=== PATIENT | male | born 1945 | race Caucasian/White ===

== ENCOUNTER → 2019-01-14 | Outpatient (CLI) | payer MEDICARE, SELFPAY ==
[2019-01-14 13:03] VITALS: BMI 30.1
[2019-01-14 14:21] LABS: Absolute Lymphocyte Count 0.81 X10^3/ul (0.83-4.51); Absolute Neutrophil Count 4.2 X10^3/uL (2.0-7.7); Basophil# 0.04 X10^3/uL; Basophil% 0.7 % (0-1); Eosinophil# 0.07 X10^3/uL; Eosinophils% 1.2 % (0-5); Hematocrit 51.8 % (40-54); Hemoglobin 17.8 g/dl (13.0-16.5); Lymphocyte # 0.81 X10^3/ul (4.0); Lymphocyte % 13.8 % (19-41); Mean Corp Hgb Conc 34.4 g/gl (32-36); Mean Corpuscular Hgb 32.3 pg (27.0-32.0); Mean Platelet Vol. 9.4 fl (6.2-12.0); Monocyte# 0.75 X10^3/uL; Monocyte% 12.8 % (0-10); Neutrophil # 4.17 X10^3/uL (2.7-7.7); Neutrophil % 71.2 % (47-70); Platelet Count 212 K/mm3 (150-450); RBC Distribution Width CV 13.5 % (11.6-14.6); RBC Distribution Width SD 46.4 fl (35.1-43.9); Red Blood Count 5.51 M/mm3 (4.6-6.2); White Blood Count 5.9 K/mm3 (4.4-11.0)
[2019-01-14 14:24] LABS: POSITIVE COUNT NO; POSITIVE DIFFERENTIAL NO; POSITIVE MORPHOLOGY NO
[2019-01-20 17:54] LABS: Alternaria alternata <0.10 kU/L (Class 0); Bermuda Grass <0.10 kU/L (Class 0); Bluegrass, Kentucky <0.10 kU/L (Class 0); Cat Hair/Dander, Standard <0.10 kU/L (Class 0); D farinae Mite <0.10 kU/L (Class 0); D pteronyssinus <0.10 kU/L (Class 0); Dog Epithelia <0.10 kU/L (Class 0); Elm, American White <0.10 kU/L (Class 0); Oak, White <0.10 kU/L (Class 0); Plantain, English <0.10 kU/L (Class 0); Ragweed, Short/Common <0.10 kU/L (Class 0)
[2019-01-21 03:06] LABS: Aspirgillus flavus Negative (Neg:<1:1); Aspirgillus fumigatus Negative (Neg:<1:1); Aspirgillus niger Negative (Neg:<1:1)
[2019-01-21 17:01] LABS: Immunoglobulin E 108 IU/mL (6-495)
[2019-01-21 17:05] LABS: Mouse Urine <0.10 kU/L (Class 0)
== END | disposition home or self-care (01) ==
PROVIDERS: Family Provider Family Medicine; PCP Family Medicine; Visit Provider Nurse Practitioner Acute Care
DX: J30.9 Allergic rhinitis, unspecified (principal); R05 Cough
CPT/HCPCS: 36415; 82785; 85025; 86003; 86606

== ENCOUNTER → 2019-08-09 | Outpatient (CLI) | payer MEDICARE, SELFPAY ==
[2019-08-04 13:03] VITALS: BMI 29.7
--- NOTE | 2019-08-09 09:58 | EKG12_ITS ---
Test Reason : Blood Pressure : / mmHG Vent. Rate : 105 BPM Atrial Rate : 326 BPM P-R Int : 000 ms QRS Dur : 100 ms QT Int : 336 ms P-R-T Axes : 000 -39 035 degrees QTc Int : 444 ms Atrial fibrillation with rapid ventricular response Left axis deviation Minimal voltage criteria for LVH, may be normal variant Abnormal ECG Confirmed by DUSTIN CUETO, PHYLICIA ([id number]), manuscript editor LEONARD BRANDT ([id number]) on 08/10/2019 8:43:19 AM Referred By: Lexa Lmoeli Confirmed By:PHYLICIA CHAN MD
[2019-08-09 12:18] LABS: Absolute Lymphocyte Count 0.78 X10^3/uL (0.83-4.51); Absolute Neutrophil Count 7.1 X10^3/uL (2.0-7.7); Basophil# 0.05 X10^3/uL; Basophil% 0.6 % (0-1); Eosinophil# 0.03 X10^3/uL; Eosinophils% 0.3 % (0-5); Hematocrit 53.5 % (40-54); Hemoglobin 17.8 g/dL (13.0-16.5); Lymphocyte # 0.78 X10^3/ul (4.0); Lymphocyte % 8.6 % (19-41); Mean Corp Hgb Conc 33.3 g/dL (32-36); Mean Corpuscular Hgb 32.4 pg (27.0-32.0); Mean Corpuscular Volume 97.3 fL (80-94); Mean Platelet Vol. 10.8 fl (6.2-12.0); Monocyte# 0.98 X10^3/uL; Monocyte% 10.9 % (0-10); NRBC Flagged by Analyzer 0 % (0-5); Neutrophil # 7.09 X10^3/uL (2.7-7.7); Neutrophil % 78.6 % (47-70); Platelet Count 197 K/mm3 (150-450); RBC Distribution Width CV 12.8 % (11.6-14.6)
[2019-08-09 12:39] LABS: ALB/GLOB Ratio 0.9 RATIO (0.9-2.4); AST(SGOT) 26 U/L (15-37); Alanine Aminotransfer ALT/SGPT 29 U/L (16-61); Albumin, Serum 3.5 g/dL (3.2-5.0); Alkaline Phosphatase 78 U/L (45-117); Anion Gap 12 (5-15); BUN 15 mg/dL (7-18); BUN/Creat Ratio 13.2 RATIO (10-20); Chloride 94 mmol/L (98-107); Creatinine, Serum 1.14 mg/dL (0.70-1.30); EST Glomerular Filtration Rate 67 mL/min (>60); Est Glom Filt Rate - Afr Amer 81 mL/min (>60); Globulin 4.1 g/dL (2.2-4.2); Glucose 116 mg/dL (74-106); Potassium 5.4 mmol/L (3.5-5.1); Protein, Total 7.6 g/dL (6.4-8.2); Sodium Level 130 mmol/L (136-145); T4 Free Direct 1.49 ng/dL (0.76-1.46)
== END | disposition home or self-care (01) ==
LOC: BIMLAB 09:08 → CVS 09:36
PROVIDERS: Family Provider Internal Medicine; PCP Internal Medicine; Referring Provider Internal Medicine; Visit Provider Internal Medicine
DX: I10 Essential (primary) hypertension (principal); E03.9 Hypothyroidism, unspecified
CPT/HCPCS: 36415; 80053; 84439; 84443; 85025; 93005

== ENCOUNTER → 2019-08-12 | Outpatient (CLI) | payer MEDICARE, SELFPAY ==
[2019-08-10 14:46] VITALS: BMI 30.7
== END | disposition home or self-care (01) ==
LOC: BIMLAB 08:38
PROVIDERS: Family Provider Internal Medicine; PCP Internal Medicine; Visit Provider Internal Medicine Cardiovascular Disease
DX: R06.00 Dyspnea, unspecified (principal); E03.9 Hypothyroidism, unspecified; I10 Essential (primary) hypertension; I48.0 Paroxysmal atrial fibrillation; J45.909 Unspecified asthma, uncomplicated; R53.83 Other fatigue
CPT/HCPCS: 36415; 83880

== ENCOUNTER → 2019-08-19 | Outpatient (CLI) | payer MEDICARE, SELFPAY ==
[2019-08-10 14:46] VITALS: BMI 30.7
[2019-08-19 12:16] LABS: Anion Gap 5 (5-15); BUN 14 mg/dL (7-18); BUN/Creat Ratio 13.3 RATIO (10-20); Calcium,Total 9.2 mg/dL (8.5-10.1); Chloride 92 mmol/L (98-107); Creatinine, Serum 1.05 mg/dL (0.70-1.30); EST Glomerular Filtration Rate 73 mL/min (>60); Est Glom Filt Rate - Afr Amer 89 mL/min (>60); Glucose 133 mg/dL (74-106); Potassium 4.6 mmol/L (3.5-5.1); Sodium Level 131 mmol/L (136-145)
== END | disposition home or self-care (01) ==
LOC: BIMLAB 10:08
PROVIDERS: Family Provider Internal Medicine; PCP Internal Medicine; Visit Provider Internal Medicine
DX: I10 Essential (primary) hypertension (principal); E87.5 Hyperkalemia
CPT/HCPCS: 36415; 80048

== ENCOUNTER → 2019-08-30 06:16 | Outpatient (CLI) | payer MEDICARE, SELFPAY ==
[2019-08-10 14:46] VITALS: BMI 30.7
--- NOTE | 2019-08-30 06:18 | ECHOCS_ITS ---
Reason For Study: AFIB Procedure This was a 2D Doppler, Color Flow transthoracic echocardiogram. The study was technically difficult. Contrast injection was performed. Exam performed in department. Left Ventricle Mildly dilated left ventricle. The estimated ejection fraction is 25 %. Unable to assess diastolic dysfunction due to arrhythmia. No regional wall motion abnormalities noted. Right Ventricle Normal RV size. Normal systolic function. Atria The left atrium is mildly enlarged. Normal right atrium. Mitral Valve Normal mitral valve. Tricuspid Valve Normal tricuspid valve. Mild to moderate (1-2+) tricuspid valve insufficiency. Pulmonary artery systolic pressure is 50 mmHg. Moderate pulmonary hypertension. Aortic Valve Normal aortic valve. Pulmonic Valve Normal pulmonic valve. Great Vessels Normal aortic root. The pulmonary artery is normal size. Normal inferior vena cava. Pericardium/Pleural No pericardial effusion. Medication Diluted definity 3.0ml given slow IV push to enhance endocardial definition. MMode/2D Measurements & Calculations LVIDd: 5.8 cm IVSd: 0.97 cm Ao root diam: 3.8 cm LVIDs: 5.0 cm LVPWd: 1.0 cm RVDd: 3.9 cm FS: 13.5 % LAV(MOD-bp): 68.8 ml LVAd ap4: 41.3 cm2 SV(MOD-sp4): 33.0 ml LAV(MOD-bp) Indexed: 31.3 ml/m2 EDV(MOD-sp4): 161.5 ml LAV(MOD-sp2): 57.0 ml EDV(sp4-el): 164.2 ml LAV(MOD-sp4): 75.2 ml LVAs ap4: 34.7 cm2 ESV(MOD-sp4): 128.5 ml ESV(sp4-el): 131.2 ml EF(MOD-sp4): 20.4 % EF(sp4-el): 20.1 % SV(sp4-el): 33.1 ml LA A4 area: 24.2 cm2 LA dimension(2D): 4.8 cm RA A4 area: 18.6 cm2 Doppler Measurements & Calculations Ao V2 max: 96.7 cm/sec AI max sabiha: 400.9 cm/sec LV V1 max: 53.6 cm/sec Ao max P.8 mmHg AI max P.4 mmHg LV V1 max P.2 mmHg Ao V2 mean: 72.0 cm/sec AI dec slope: 186.4 cm/sec2 LV V1 mean P.67 mmHg Ao mean P.3 mmHg AI P1/2t: 630.0 msec LV V1 mean: 38.8 cm/sec Ao V2 VTI: 16.5 cm LV V1 VTI: 9.7 cm PA V2 max: 98.6 cm/sec TR max sabiha: 341.4 cm/sec TR max P.6 mmHg Interpretation Summary Mildly dilated left ventricle. The estimated ejection fraction is 25 %. Unable to assess diastolic dysfunction due to arrhythmia. Moderate pulmonary hypertension. Contrast injection was performed. Ordering Physician: Omid Escobar Referring Physician: Lexa Lomeli Performed By: Dulce Sam RDCS, RVT
--- NOTE | 2019-08-30 09:54 | STRESSREP ---
Stress Test Report Pharmacologic myocardial perfusion stress test. 73-year-old male with a history of atrial fibrillation. Stress protocol: Resting EKG demonstrates atrial for ablation with a rate of 88 bpm. Resting blood pressures 150/98 mmHg. 0.4 mg of regadenoson was infused per usual protocol followed by rapid intravenous saline flush injection continuous EKG monitoring was performed. The maximum heart rate attained was 116 bpm which was 79% of maximum predicted heart rate the maximum workload was 1 metabolic equivalent. Patient maintained atrial fibrillation throughout the recording with nonspecific ST-T wave changes noted. The resting blood pressure was 150/98 mmHg final blood pressure was 130/94 mmHg. No clinical angina was noted. Myocardial perfusion protocol. 15.0 mCi of technetium 99m sestamibi was injected at rest. 0.4 mg of regadenoson was infused per usual protocol peak infusion 44.8 mCi of technetium 99m sestamibi was injected stress images were obtained stress and rest images were reconstructed and compared in the short axis vertical and horizontal long axis. Gated images were also obtained Perfusion SPECT analysis: Review of the stress images demonstrate normal uptake of tracer noted in all areas of the myocardium the resting images similarly demonstrate normal uptake of tracer noted in all areas of the myocardium. No obvious reversibility is noted. Gated SPECT analysis: The gated ejection fraction demonstrates globally reduced left ventricular ejection fraction estimated to be 29%. Conclusion: Myocardial perfusion stress test with no evidence of ischemia. Cardiomyopathy noted.
== END ==
PROVIDERS: Family Provider Internal Medicine; PCP Internal Medicine; Referring Provider Internal Medicine Cardiovascular Disease; Visit Provider Internal Medicine Cardiovascular Disease
DX: I48.0 Paroxysmal atrial fibrillation (principal); R06.00 Dyspnea, unspecified
CPT/HCPCS: 78452; 93017; 93306; A9500; Q9957; A4216; C8929; J2785

== ENCOUNTER → 2019-09-23 16:18 | Outpatient (CLI) | payer MEDICARE, SELFPAY ==
[2019-09-23 15:25] VITALS: BMI 30.2
[2019-09-23 17:50] LABS: Anion Gap 5 (5-15); BUN 11 mg/dL (7-18); BUN/Creat Ratio 11.1 RATIO (10-20); Calcium,Total 9.3 mg/dL (8.5-10.1); Chloride 99 mmol/L (98-107); Creatinine, Serum 0.99 mg/dL (0.70-1.30); EST Glomerular Filtration Rate 79 mL/min (>60); Est Glom Filt Rate - Afr Amer 95 mL/min (>60); Glucose 138 mg/dL (74-106); Potassium 4.3 mmol/L (3.5-5.1); Sodium Level 133 mmol/L (136-145)
== END ==
PROVIDERS: Family Provider Internal Medicine; PCP Internal Medicine; Referring Provider Internal Medicine Cardiovascular Disease; Visit Provider Internal Medicine Cardiovascular Disease
DX: I10 Essential (primary) hypertension (principal); I42.8 Other cardiomyopathies; I48.19 Other persistent atrial fibrillation
CPT/HCPCS: 36415; 80048

== ENCOUNTER 2019-10-08 10:36 | Day surgery (SDC) | payer MEDICARE, SELFPAY ==
[2019-09-23 15:25] VITALS: BMI 30.2
[2019-10-07 10:16] VITALS: BMI 30.2
--- NOTE | 2019-10-08 12:39 | CARDIOVERS ---
Cardioversion Cardioversion: DC cardioversion. 74-year-old man with a history of cardiomyopathy and chronic persistent atrial fibrillation. The patient was brought to the cardiac catheterization lab in the postabsorptive nonsedated state. Patient was seen by Dr. Owen of the critical care division. Informed consent was obtained. The patient was then administered 6 mg of intravenous etomidate after anterior-posterior pads were applied. 200 J of synchronized DC cardioversion energy were applied with prompt reversal to sinus rhythm. Patient did have an episode of sinus tachycardia as well. Conclusion: Successful DC cardioversion from atrial fibrillation to sinus rhythm. Amiodarone 200 mg a day for a month. We will follow-up in the office.
--- NOTE | 2019-10-08 13:15 | PCM.OP.PRO ---
Procedure Report Date of Procedure: 10/08/19 CONSCIOUS SEDATION REPORT DATE OF SERVICE: October 08, 2019 BRIEF HISTORY OF PRESENT ILLNESS: The patient is a 74-year-old male who presented to [facility] for an elective outpatient cardioversion due to underlying atrial fibrillation. The patient is currently anticoagulated on Eliquis. He has never undergone a previous cardioversion. His last surface echocardiogram revealed an ejection fraction of approximately 25%. The patient denies any previous anesthetic complications. PHYSICAL EXAMINATION: VITAL SIGNS: Reviewed and were acceptable. GENERAL: The patient is a male, in no apparent distress, speaking in full sentences. HEENT: Normocephalic, atraumatic. Mucous membranes are moist and pink. Good mouth opening noted. Trachea is midline. CHEST: S1, S2 irregularly irregular. No murmurs, rubs or gallops were noted. LUNGS: Clear to auscultation bilaterally without appreciable wheezes, rales or rhonchi. ABDOMEN: Soft, nontender, nondistended. Positive bowel sounds. EXTREMITIES: There is no clubbing, cyanosis or edema. ASA Class: II DESCRIPTION OF PROCEDURE: After confirmation of informed consent, the patient's anesthesia plan was reviewed in detail. Etomidate was chosen. Risks and benefits were reviewed and the patient agreed to proceed. At 1209, the patient was given 6 mg of etomidate. The patient achieved an appropriate level of sedation and was given a 200 joule synchronized cardioversion by Dr. Escobar at the bedside. This was successful in achieving normal sinus rhythm. The patient was monitored until 1220, at which time he reached his baseline mental status and function. The patient tolerated the procedure well. COMPLICATIONS: None ESTIMATED BLOOD LOSS: None RECOMMENDATIONS: Okay to recover in usual fashion. Code Visit [id number]: Other Procedure See Report - [id number]
== END 2019-10-08 13:20 | disposition home or self-care (01) ==
LOC: CLSP 10:37
PROVIDERS: Family Provider Internal Medicine; PCP Internal Medicine; Referring Provider Internal Medicine Cardiovascular Disease; Visit Provider Internal Medicine Cardiovascular Disease
DX: I48.19 Other persistent atrial fibrillation (principal); I42.9 Cardiomyopathy, unspecified; I10 Essential (primary) hypertension; E03.9 Hypothyroidism, unspecified; J45.909 Unspecified asthma, uncomplicated; Z79.02 Long term (current) use of antithrombotics/antiplatelets; Z79.51 Long term (current) use of inhaled steroids; Z79.899 Other long term (current) drug therapy
CPT/HCPCS: 92960; 93005; J7040

== ENCOUNTER → 2019-12-29 14:50 | Outpatient (CLI) | payer MEDICARE, SELFPAY ==
[2019-12-29 14:29] VITALS: BMI 31.2
[2019-12-29 16:02] LABS: Anion Gap 9 (5-15); BUN 9 mg/dL (7-18); BUN/Creat Ratio 10.3 RATIO (10-20); Calcium,Total 9.1 mg/dL (8.5-10.1); Chloride 96 mmol/L (98-107); Creatinine, Serum 0.87 mg/dL (0.70-1.30); EST Glomerular Filtration Rate 91 mL/min (>60); Est Glom Filt Rate - Afr Amer 110 mL/min (>60); Glucose 133 mg/dL (74-106); Potassium 4.8 mmol/L (3.5-5.1); Sodium Level 134 mmol/L (136-145)
== END ==
PROVIDERS: PCP Internal Medicine; Visit Provider Internal Medicine
DX: I10 Essential (primary) hypertension (principal)
CPT/HCPCS: 36415; 80048

== ENCOUNTER 2020-06-09 06:28 | Day surgery (SDC) | payer MEDICARE, SELFPAY ==
[2020-04-25 14:25] VITALS: BMI 31.2
--- NOTE | 2020-06-05 14:20 | RAD_ITS ---
STUDY: X-RAY CHEST REASON FOR EXAM: Male, 74 years old. chronic cough, pre op for procedure in near future TECHNIQUE: Frontal and lateral views of the chest. COMPARISON: None. FINDINGS: Cervical spine fusions. The lungs are clear and expanded. There is no demonstrated pleural abnormality. Normal size heart. Normal mediastinum and taryn. Normal visualized pulmonary arteries. Normal visualized aortic arch and descending thoracic aorta. Normal visualized thoracic spine. Normal visualized ribs, clavicles, and shoulders. There is no demonstrated abnormality of the visualized soft tissue structures of the upper abdomen. RAD/Chest PA and Lateral IMPRESSION: No acute pulmonary findings. Electronically Signed: Frederick Fenton MD at 20:37 EDT Tel , Service support ,
[2020-06-05 14:50] LABS: Absolute Lymphocyte Count 0.84 X10^3/uL (0.83-4.51); Absolute Neutrophil Count 3.4 X10^3/uL (2.0-7.7); Basophil# 0.05 X10^3/uL; Eosinophil# 0.06 X10^3/uL; Eosinophils% 1.2 % (0-5); Hematocrit 49.4 % (40-54); Hemoglobin 16.4 g/dL (13.0-16.5); Lymphocyte # 0.84 X10^3/ul (4.0); Lymphocyte % 16.4 % (19-41); Mean Corp Hgb Conc 33.2 g/dL (32-36); Mean Corpuscular Hgb 32.6 pg (27.0-32.0); Mean Corpuscular Volume 98.2 fL (80-94); Mean Platelet Vol. 9.7 fl (6.2-12.0); Monocyte# 0.75 X10^3/uL; Monocyte% 14.7 % (0-10); NRBC Flagged by Analyzer 0 % (0-5); Neutrophil # 3.37 X10^3/uL (2.7-7.7); Neutrophil % 65.9 % (47-70); Platelet Count 212 K/mm3 (150-450); RBC Distribution Width CV 12.6 % (11.6-14.6); RBC Distribution Width SD 45.1 fl (35.1-43.9); Red Blood Count 5.03 M/mm3 (4.6-6.2); White Blood Count 5.1 K/mm3 (4.4-11.0)
[2020-06-05 15:42] LABS: Anion Gap 4 (5-15); BUN 12 mg/dL (7-18); BUN/Creat Ratio 13.9 RATIO (10-20); Calcium,Total 8.9 mg/dL (8.5-10.1); Chloride 102 mmol/L (98-107); Creatinine, Serum 0.86 mg/dL (0.70-1.30); EST Glomerular Filtration Rate 91 mL/min (>60); Est Glom Filt Rate - Afr Amer 111 mL/min (>60); Glucose 152 mg/dL (74-106); Potassium 4.1 mmol/L (3.5-5.1); Sodium Level 135 mmol/L (136-145)
[2020-06-08 08:20] VITALS: BMI 29.9
--- NOTE | 2020-06-09 08:00 | HP.PCM_ITS ---
History and Physical Date of Admission: 06/09/20 MARSHAL LONGORIA, is a 74 M who presents today for a [facility]. He has a history of hypertension, previous paroxysmal atrial fibrillation, who in 2017 was diagnosed as having paroxysmal atrial fibrillation. It may even have been diagnosed with back in 2008. He had an echocardiogram done which demonstrated ejection fraction of 55 to 60%. His major issue has been a cough recently which has been persistent he had it while he was on lisinopril and was switched to losartan and he said it does come back. He strongly suspects that this may be related to it. You do remember that he underwent a recent echocardiographic evaluation which demonstrated global reduction in left ventricular systolic function estimated at 25% with pulmonary systolic pressure of 50 mmHg. He underwent cardioversion on 10/08/2019 with recommendation to continue amiodarone therapy for 1 month as his reduced ejection fraction was thought to be nonischemic and possibly tachycardia mediated. He under went CRYO-Pulmonary vein isolation ablation with Dr. Bowen on 03/24/2020. Patient underwent stage I of a 2 part hybrid AF ablation strategy with cryo- pulmonary vein isolation ablation with Dr. Bowen at [facility] on 03/24/2020. It was recommended he be referred to cardiothoracic surgeon for part 2 (CONVERGENT maze +AtriClip). As part of his work-up, it was recommend he undergo a heart catheterization to assess coronary artery disease component. He presents today for a left heart catheterization. He denies chest, arm, jaw, or neck discomfort. His exercise tolerance is stable. He denies symptoms of palpitations, lightheadedness, dizziness, near syncope, or syncopal episodes. He denies edema or claudication issues. He denies orthopnea, PND, fever, chills, blood in urine, blood in stool, or myalgia. Intake Vital Signs: See EMR Intake Visit Reasons: [facility] Allergies lisinopril Adverse Reaction (Verified 09/01/19 13:31) COUGH sertraline [From Zoloft] Adverse Reaction (Verified 09/01/19 13:31) dizzy/weakness/nausea Medications See EMR FOR[facility] Medical History Non-ischemic cardiomyopathy (Chronic) Essential (primary) hypertension (Chronic) Paroxysmal atrial fibrillation (Chronic) Hypothyroidism (Chronic) Asthma (Chronic) BMI 30.0-30.9,adult (Chronic) Glaucoma (Chronic) Neuropathy (Chronic) Seasonal allergies (Chronic) Cough (Resolved) Recurrent sinusitis (Resolved) Surgical History Cataract (Resolved) H/O bilateral inguinal hernia repair (Resolved) History of bilateral knee replacement (Resolved) History of cholecystectomy (Resolved) History of discectomy (Resolved) Partial traumatic amputation of foot (Resolved) Family History Mother Diabetes Heart disease Father Heart disease Grandfather Diabetes Brother Heart disease Grandmother Cancer Social History (Updated 09/23/19 @ 15:52 by Omid Escobar MD) Smoking Status: Never smoker alcohol intake: current alcohol intake frequency: holidays/special occasions only substance use type: does not use what type of physical activity do you participate in: walking, weight training frequency: 3-4 times per week ROS Const Const: Positive for other (insomnia); negative for fatigue, weakness, headache(s), frequent falls, difficulty sleeping or excessive sweating Eyes Eyes: Negative for loss of peripheral vision, transient loss of vision, blurry vision, double vision or tunnel vision ENT ENT: Negative for headache(s), dizziness, Nosebleed/epistaxis or balance problems Cardio Chest Pain: No Palpitations: No Edema: None Muscle aches with walking: None Resp Respiratory: Positive for SOB with activity (better, but get SOB walking up an incline) and improved cough; negative for SOB at rest, SOB orthopnea\SOB lying down or paroxysmal nocturnal dyspnea GI GI: Negative nausea, vomiting, heartburn or black,tarry stools : Negative for hematuria Musc Musc: Negative for muscle aches/ myalgia, muscle weakness, joint pain (leg pain at rest) or balance problems Skin Skin: Negative non-healing lesions, rash or unusual bruising Neuro Neuro: Positive for other (BLE neuropathy); negative for dizziness, lightheadedness, near syncope, syncope, orthostatic symptoms, frequent falls, headache(s), weakness, blurry vision, double vision or lack of coordination Michael Hematologic/Lymphatic: Negative for easy bleeding or easy bruising Endo Endo: Negative for fatigue, excessive sweating or increased thirst/drinking Psych Psych: Negative for anxiety or depression Allergy Allergy/Immunology: Negative for hives, Negative for rash Cardiology Exam Const Appearance: cooperative, healthy appearing, no acute distress, well developed and well groomed Nutritional Appearance: average body habitus and well nourished Orientation: alert, awake and oriented x3 Head Head: normal to inspection, normocephalic and atraumatic Ears: hearing grossly normal bilaterally and external ears normal Nose: external nose normal, nares normal, nasal mucous membranes and turbinates normal, septum normal, no nasal discharge Face and Sinus: face symmetric Mouth: oral mucosae normal, tongue normal, oropharynx normal and moist mucous membranes Teeth and gingiva: dentition normal Throat: posterior oropharynx normal, tonsils normal and uvula midline Eyes General: appearance normal, both eyes and all related structures Eyelids: eyelids normal Conjunctivae: conjunctivae normal Pupils: PERRL, normal by confrontation and accommodation normal EOM: EOM intact bilaterally Neck Neck: normal visual inspection, trachea midline and no JVD JVD: +5 Carotids: normal carotid upstroke and bounding pulses Chest Chest inspection: normal inspection of the chest, symmetric chest movement and normal respiratory effort Auscultation: Bilateral: Clear to Auscultation Cardio Palpation: normal PMI Rate: regular rate Rhythm: regular rhythm Heart sounds: S1 normal, S2 normal and normal, negative rub, gallop or murmur GI GI: normal to inspection, soft, no hepatosplenomegaly and bowel sounds present Neuro General: alert, awake, oriented x3, gait normal, moves all extremities and no focal sensory deficit Skin Skin: no rashes or lesions noted Extremities Pulses: Normal: Right Femoral Pulse, Left Femoral Pulse, Right Dorsalis Pedis Pulse, Left Dorsalis Pedis Pulse, Right Posterior Tibial Pulse, Left Posterior Tibial Pulse, Right Radial Pulse, Left Radial Pulse Lower Extremity Edema: None: Bilateral Musculoskel Musculoskeletal: No joint tenderness Psych Psychological: normal affect Assessment & Plan 1. Non-ischemic cardiomyopathy I42.8 Plan He appears to have what is a nonischemic cardiomyopathy. His last ec hocardiogram on 08/30/2019 showed an ejection of 25%, no regional wall motion abnormalities, and moderate pulmonary hypertension. He will proceed with heart catheterization today to further evaluate coronary artery disease component to atrial fibrillation as part of his work-up for hybrid atrial fibrillation ablation procedure at [facility].. 2. Essential (primary) hypertension I10 Plan He does have a history of hypertension. His blood pressure appears to fluctuate. This will be monitored on outpatient basis with continual medication adjustment as indicated. 3. Persistent atrial fibrillation I48.19 Plan His 12-lead EKG on 06/09/2020 shows sinus rhythm with a first-degree A-V block. At this time, he will continue with electrophysiology treatment plan. He will continue current medical therapy. Thank you for allowing us to participate in the patients plan of care, if you have any questions please do not hesitate to call. This note was generated using a voice recognition system and there may be incorrect words, spelling or punctuation that were not noted when reviewing the office note prior to saving. Addendum 06/09/2020: Patient seen prior to [facility] and no changes noted. Procedure Criteria Procedure Type: Elective COVID Risk Discussion: The surgeon/proceduralist and patient have discussed in detail the risk of exposure to and/or potential harm posed by the COVID-19 virus with having a surgery/procedure at this time versus the risk of delaying the surgery/procedure. It is not possible to know either the risk of delaying the surgery or procedure or chance of getting an infection with perfect accuracy, but a joint decision was made between the patient and the surgeon/proceduralist to proceed at this time with the scheduled surgery/procedure as indicated on the consent form.
--- NOTE | 2020-06-09 09:33 | CL.D_ITS ---
Patient Name: MARSHAL LONGORIA Study Date: 06/09/2020 Performing: Omid Escobar MD Ht: 70.86 inches 180 cm : 1945 Wt: 216.05 lbs 98 kg Age: 74 Gender: male BSA: 2.18 PROCEDURE(S) PERFORMED [id number]/COR/LV [id number], CORONARY OR GRAFT, INITIAL VESSEL CLINICAL PROFILE AND INDICATIONS Indications: Other Heart Failure: NYHA Class: 2, Newly Diagnosed: Yes, Heart Failure Type: Systolic Stress/Imaging Stress/Image Study Performed: No CAD Presentations: Symptom unlikely to be ischemic. CONCLUSIONS Moderate disease noted in the left anterior descending artery and mild disease noted in the circumfle x and right coronary arteries with calcification. RECOMMENDATIONS Staged for FFR Medical therapy DESCRIPTION OF PROCEDURE The patient arrived to the procedure lab. The risks and benefits of the procedure as well as a full d escription of our services here and current unavailability of surgical backup were fully explained to the patient and/or their significant other prior to the catheterization. The Timeout was completed, verifying the correct patient and procedure. The patient's procedural site was prepped and draped in the usual fashion. Local anesthetic was given subcutaneously to right radial region with Lidocaine 2% . Using a modified Seldinger technique, arterial access was obtained via the right radial artery, a 6 Fr sheath was inserted. Right Coronary Artery selective angiography was then performed in multiple v iews using a 5 Fr. 4.0 [place] catheter. Left Coronary Artery selective angiography was performed in mu ltiple views using a 5 Fr. JL3.5 catheter. Left Ventriculography was performed in [place] projection usin g a 5 Fr. Pigtail catheter. LV to AO pullback pressures were then recorded.The arterial sheath was pulled and a TR Band was applied for hemostasis-12 CC AIR CORONARY ANGIOGRAPHY DOMINANCE: Right Dominant LEFT HEART ASSESSMENT Left Ventricular Ejection Fraction: by LV Gram 40 % Global Hypokinesis - Mild Depressed Left Ventricular systolic function LEFT MAIN: Mild calcification, Mild luminal irregularities LEFT ANTERIOR DESCENDING ARTERY: MID LAD: Diffusely diseased up to 65 % CIRCUMFLEX ARTERY: Mild luminal irregularities less than 30% RIGHT CORONARY ARTERY: Mild luminal irregularities less than 30% COMPLICATIONS No Complications PROCEDURE MEDICATIONS Versed 1 mg IV Fentanyl 50 mcg IV Versed 1 mg IV Versed 1 mg IV Oxygen: 2 L/min via nasal cannula Baby Aspirin (81mg) 4 Tabs PO 06/09/2020 08:25:45 Adenosine drip for FFR 27.2 ml IV @ 06/09/2020 08:43:06 Heparin diluted in 23cc Heparinized saline. Patient given 10cc IA of this solution. 06/09/2020 08:03:0 6 Heparin 5000 unit(s) IV 06/09/2020 08:35:51 Verapamil 2.5mg, Ntg 100mcgs, 2000 units of Heparin diluted in 23cc Heparinized saline. Patient give n 10cc IA of this solution. 06/09/2020 08:03:06 SUMMARY OF HEMODYNAMIC DATA Time AIR REST ECG 07:04:04 AO 121/63 (86) SA 08:03:20 LV 140/2, 5 08:22:23 LV 138/5, 7 08:22:30 LV 120/5, 8 08:23:07 LVp 119/4, 7 08:23:11 AOp 131/69 (96) 08:23:16 AO 151/75 (107) 08:38:47 Signed By Omid Escobar MD On 06/09/2020 9:32:41 AM Omid Escobar MD
--- NOTE | 2020-06-09 17:48 | CL.I_ITS ---
Patient Name: MARSHAL LONGORIA Study Date: 06/09/2020 Performing: Alessandro Salas MD Ht: 71 inches 180 cm : 1945 Wt: 216.3 lbs 98 kg Age: 74 Gender: male BSA: 2.18 PROCEDURE(S) PERFORMED [id number], CORONARY OR GRAFT, INITIAL VESSEL CLINICAL PROFILE AND CO-MORBIDITIES Indications: Other Heart Failure: NYHA Class: 2, Newly Diagnosed: Yes, Heart Failure Type: Systolic Stress/Imaging Stress/Image Study Performed: No CAD Presentations: Symptom unlikely to be ischemic. CONCLUSIONS FFR in the LAD is 0.87 which is consistent with stenoses that can be treated medically RECOMMENDATIONS DESCRIPTION OF PROCEDURE The patient arrived to the procedure lab. The risks and benefits of the procedure as well as a full d escription of our services here and current unavailability of surgical backup were fully explained to the patient and/or their significant other prior to the catheterization. The Timeout was completed, verifying the correct patient and procedure. The patient's procedural site was prepped and draped in the usual fashion. Local anesthetic was given subcutaneously to right radial region with Lidocaine 2% Using a modified Seldinger technique,arterial access was obtained via the right radial artery, a 6Fr sheath was inserted. Right Coronary Artery selective angiography was then performed in multiple view s using a 5 Fr. 4.0 [place] catheter. Left Coronary Artery selective angiography was performed in multi ple views using a 5 Fr. JL3.5 catheter. Left Ventriculography was performed in [place] projection using a 5 Fr. Pigtail catheter. LV to AO pullback pressures were then recorded.The images were reviewed and options discussed. A decision was then made to proceed with an Intervention, IVUS or oth er adjunct procedure. XB 3.5 Guide catheter was inserted and engaged into the LCA. The FFR/iFR wire was inserted. Adeno sine was then given per protocol. Pressures and FFR/iFR were then recorded. FFR Ratio Baseline: 0.98 FFR Ratio post Adenosine: 0.87 The FFR/iFR wire was then removed. The arterial sheath was pulled an d a TR Band was applied for hemostasis-12 CC AIR INTERVENTION INFORMATION LESION SITE: LAD (Mid) Lesion Devices: Cardinal 6 Fr XB3.5 100cm Guide Catheter [employer] ( [employer]) Coronary FFR Wire COMPLICATIONS No Complications PROCEDURE MEDICATIONS Versed 1 mg IV Fentanyl 50 mcg IV Versed 1 mg IV Versed 1 mg IV Oxygen: 2 L/min via nasal cannula Baby Aspirin (81mg) 4 Tabs PO 06/09/2020 08:25:45 Adenosine drip for FFR 27.2 ml IV @ 06/09/2020 08:43:06 Heparin diluted in 23cc Heparinized saline. Patient given 10cc IA of this solution. 06/09/2020 08:03:0 6 Heparin 5000 unit(s) IV 06/09/2020 08:35:51 Verapamil 2.5mg, Ntg 100mcgs, 2000 units of Heparin diluted in 23cc Heparinized saline. Patient give n 10cc IA of this solution. 06/09/2020 08:03:06 SUMMARY OF HEMODYNAMIC DATA Time AIR REST ECG 07:04:04 AO 121/63 (86) SA 08:03:20 LV 140/2, 5 08:22:23 LV 138/5, 7 08:22:30 LV 120/5, 8 08:23:07 LVp 119/4, 7 08:23:11 AOp 131/69 (96) 08:23:16 AO 151/75 (107) 08:38:47 Signed By Alessandro Salas MD On 06/09/2020 17:47:44 Alessandro Salas MD
== END 2020-06-09 11:05 | disposition home or self-care (01) ==
LOC: CLSP 06:29
PROVIDERS: PCP Internal Medicine; Referring Provider Internal Medicine Cardiovascular Disease; Visit Provider Internal Medicine Cardiovascular Disease
DX: I42.8 Other cardiomyopathies (principal); I10 Essential (primary) hypertension; I48.19 Other persistent atrial fibrillation; I48.0 Paroxysmal atrial fibrillation; E03.9 Hypothyroidism, unspecified; J45.909 Unspecified asthma, uncomplicated
CPT/HCPCS: 36415; 71046; 80048; 85025; 93005; 93458; 93571; 99152; 99153; J0153; J7040; C1769; C1887; C1894; Q9967

== ENCOUNTER → 2020-07-25 | Outpatient (CLI) | payer MEDICARE, SELFPAY ==
[2020-07-25 14:25] VITALS: BMI 29.2
[2020-07-25 17:24] LABS: Thyroid Stim Hormone (TSH) 2.24 uIU/mL (0.358-3.74)
== END | disposition home or self-care (01) ==
LOC: BIMLAB 15:10
PROVIDERS: PCP Internal Medicine; Referring Provider Internal Medicine; Visit Provider Internal Medicine
DX: E03.9 Hypothyroidism, unspecified (principal)
CPT/HCPCS: 36415; 84443

== ENCOUNTER → 2020-08-29 13:42 | Outpatient (CLI) | payer MEDICARE, SELFPAY ==
[2020-08-22 12:30] VITALS: BMI 29.5
--- NOTE | 2020-08-29 13:48 | ECHOD_ITS ---
Version 2 Reason For Study: AFIB/FLUTTER Procedure This was a 2D Doppler, Color Flow transthoracic echocardiogram. Exam performed in department. Left Ventricle Normal LV size. Left ventricular systolic function is lower limits of normal. The estimated ejection fraction is 50 %. Stage 1 diastolic dysfunction. No regional wall motion abnormalities noted. Right Ventricle Normal RV size. Normal systolic function. Atria The left atrium is mildly enlarged. Normal right atrium. Mitral Valve Normal mitral valve. Tricuspid Valve Normal tricuspid valve. Aortic Valve Trisinus/trileaflet aortic valve. Mild focal aortic valve calcification. Mild (1+) eccentric aortic valve insufficiency. Pulmonic Valve The pulmonic valve is not well visualized. Great Vessels Normal aortic root. The pulmonary artery is normal size. Normal inferior vena cava. Pericardium/Pleural No pericardial effusion. MMode/2D Measurements & Calculations LVIDd: 4.8 cm IVSd: 1.2 cm Ao root diam: 3.5 cm LVIDs: 3.2 cm LVPWd: 1.2 cm RVDd: 3.4 cm FS: 32.8 % LAV(MOD-bp): 59.5 ml LA A4 area: 20.5 cm2 LA dimension(2D): 4.0 cm LAV(MOD-bp) Indexed: 27.5 ml/m2 LAV(MOD-sp2): 61.0 ml LAV(MOD-sp4): 59.8 ml RA A4 area: 17.7 cm2 Doppler Measurements & Calculations MV E max vitor: 49.9 cm/sec Lat Peak E' Vitor: 6.4 cm/sec Med Peak E' Vitor: 4.8 cm/sec MV A max vitor: 89.3 cm/sec E/E' lat: 7.8 E/E' med: 10.4 MV E/A: 0.56 Ao V2 max: 115.5 cm/sec AI max vitor: 344.1 cm/sec LV V1 max: 87.5 cm/sec Ao max P.3 mmHg AI max P.6 mmHg LV V1 max P.1 mmHg AI dec slope: 148.2 cm/sec2 AI P1/2t: 680.2 msec PA V2 max: 77.5 cm/sec Interpretation Summary Normal LV size. Left ventricular systolic function is lower limits of normal. The estimated ejection fraction is 50 %. Stage 1 diastolic dysfunction. The left atrium is mildly enlarged. Mild (1+) eccentric aortic valve insufficiency. Compared to previous study, the left ventricular systolic function has improved.. Ordering Physician: Omid Escobar Referring Physician: Lexa Lomeli Performed By: Leidy Cooper, RACHAELCS, RVT
== END ==
PROVIDERS: PCP Internal Medicine; Referring Provider Internal Medicine Cardiovascular Disease; Visit Provider Internal Medicine Cardiovascular Disease
DX: I25.10 Atherosclerotic heart disease of native coronary artery without angina pectoris (principal); I48.91 Unspecified atrial fibrillation; I48.92 Unspecified atrial flutter
CPT/HCPCS: 93306

== ENCOUNTER → 2020-10-24 14:25 | Outpatient (CLI) | payer MEDICARE, SELFPAY ==
[2020-10-24 13:50] VITALS: BMI 29.5
[2020-10-24 15:58] LABS: Anion Gap 6 (5-15); BUN 11 mg/dL (7-18); BUN/Creat Ratio 12.2 RATIO (10-20); Calcium,Total 9.2 mg/dL (8.5-10.1); Chloride 94 mmol/L (98-107); EST Glomerular Filtration Rate 87 mL/min (>60); Est Glom Filt Rate - Afr Amer 105 mL/min (>60); Glucose 93 mg/dL (74-106); Potassium 4.7 mmol/L (3.5-5.1); Sodium Level 131 mmol/L (136-145)
== END ==
PROVIDERS: PCP Internal Medicine; Referring Provider Internal Medicine; Visit Provider Internal Medicine
DX: I10 Essential (primary) hypertension (principal)
CPT/HCPCS: 36415; 80048

== ENCOUNTER → 2021-01-30 12:15 | Outpatient (CLI) | payer MEDICARE, SELFPAY ==
[2021-01-30 11:57] VITALS: BMI 29.5
[2021-01-30 15:27] LABS: Anion Gap 3 (5-15); BUN 15 mg/dL (7-18); Calcium,Total 9.5 mg/dL (8.5-10.1); Chloride 98 mmol/L (98-107); EST Glomerular Filtration Rate 77 mL/min (>60); Est Glom Filt Rate - Afr Amer 93 mL/min (>60); Glucose 116 mg/dL (74-106); Potassium 5.7 mmol/L (3.5-5.1); Sodium Level 132 mmol/L (136-145)
== END ==
PROVIDERS: PCP Internal Medicine; Referring Provider Internal Medicine; Visit Provider Internal Medicine
DX: I10 Essential (primary) hypertension (principal)
CPT/HCPCS: 36415; 80048

== ENCOUNTER → 2021-02-08 13:00 | Outpatient (CLI) | payer MEDICARE, SELFPAY ==
[2021-01-30 11:57] VITALS: BMI 29.5
[2021-02-08 15:42] LABS: Anion Gap 6 (5-15); BUN 13 mg/dL (7-18); Calcium,Total 9.7 mg/dL (8.5-10.1); Chloride 98 mmol/L (98-107); Creatinine, Serum 0.86 mg/dL (0.70-1.30); EST Glomerular Filtration Rate 91 mL/min (>60); Est Glom Filt Rate - Afr Amer 111 mL/min (>60); Glucose 62 mg/dL (74-106); Potassium 4.7 mmol/L (3.5-5.1); Sodium Level 136 mmol/L (136-145)
== END ==
PROVIDERS: PCP Internal Medicine; Referring Provider Internal Medicine; Visit Provider Internal Medicine
DX: E78.5 Hyperlipidemia, unspecified (principal)
CPT/HCPCS: 36415; 80048

== ENCOUNTER → 2021-07-23 13:31 | Outpatient (CLI) | payer MEDICARE, SELFPAY ==
[2021-07-23 15:14] LABS: Absolute Neutrophil Count 2.3 X10^3/uL (2.0-7.7); Basophil# 0.07 X10^3/uL; Basophil% 1.7 % (0-1); Eosinophil# 0.09 X10^3/uL; Eosinophils% 2.2 % (0-5); Hematocrit 48.7 % (40-54); Lymphocyte % 22.3 % (19-41); Mean Corp Hgb Conc 32.9 g/dL (32-36); Mean Corpuscular Hgb 32.3 pg (27.0-32.0); Mean Corpuscular Volume 98.4 fL (80-94); Mean Platelet Vol. 9.5 fl (6.2-12.0); Monocyte# 0.68 X10^3/uL; Monocyte% 16.8 % (0-10); NRBC Flagged by Analyzer 0 % (0-5); Neutrophil # 2.25 X10^3/uL (2.7-7.7); Neutrophil % 55.8 % (47-70); Platelet Count 244 K/mm3 (150-450); RBC Distribution Width CV 12.4 % (11.6-14.6); RBC Distribution Width SD 44.7 fl (35.1-43.9); Red Blood Count 4.95 M/mm3 (4.6-6.2)
[2021-07-23 15:39] LABS: ALB/GLOB Ratio 0.7 RATIO (0.9-2.4); AST(SGOT) 21 U/L (15-37); Alanine Aminotransfer ALT/SGPT 26 U/L (16-61); Albumin, Serum 3.3 g/dL (3.2-5.0); Alkaline Phosphatase 73 U/L (45-117); Anion Gap 6 (5-15); BUN 10 mg/dL (7-18); BUN/Creat Ratio 10.6 RATIO (10-20); Chloride 98 mmol/L (98-107); Cholesterol 184 mg/dL (200); Creatinine, Serum 0.94 mg/dL (0.70-1.30); EST Glomerular Filtration Rate 82 mL/min (>60); Est Glom Filt Rate - Afr Amer 100 mL/min (>60); Globulin 4.5 g/dL (2.2-4.2); Glucose 113 mg/dL (74-106); High Density Lipoprotein 77 mg/dL; Potassium 5.3 mmol/L (3.5-5.1); Protein, Total 7.8 g/dL (6.4-8.2); Sodium Level 135 mmol/L (136-145); Thyroid Stim Hormone (TSH) 1.93 uIU/mL (0.358-3.74); Triglycerides 100 mg/dL; Very Low Density Lipoprotein 20 mg/dL (5-40)
== END ==
PROVIDERS: PCP Internal Medicine; Referring Provider Internal Medicine; Visit Provider Internal Medicine
DX: E03.9 Hypothyroidism, unspecified (principal); I10 Essential (primary) hypertension
CPT/HCPCS: 36415; 80053; 80061; 84443; 85025

== ENCOUNTER → 2021-08-10 14:09 | Outpatient (CLI) | payer MEDICARE, SELFPAY ==
[2021-08-10 15:41] LABS: Potassium 4.5 mmol/L (3.5-5.1)
== END ==
PROVIDERS: PCP Internal Medicine; Referring Provider Internal Medicine; Visit Provider Internal Medicine
DX: E87.5 Hyperkalemia (principal)
CPT/HCPCS: 36415; 84132

== ENCOUNTER 2021-09-08 19:23 | Emergency (ER) | payer MEDICARE, SELFPAY ==
[2021-09-08] VITALS (15 sets, daily range): BP systolic 155–242; BP diastolic 89–192; PULSE 83–95; RESP 20–28; TEMP 36.1–36.7; O2SAT 93–98; BMI 31.8
--- NOTE | 2021-09-08 19:34 | CT_ITS ---
We are attempting to reach an attending provider to discuss findings. An addendum with communication details will be sent when the communication is complete. STUDY: CT BRAIN WITHOUT CONTRAST REASON FOR EXAM: Male, 75 years old. Neurologic deficit acute stroke RADIATION DOSAGE (If Supplied By Facility): CTDIvol = ( 44.99 ) mGy, DLP = ( 846.73 ) mGycm TECHNIQUE: Transaxial CT imaging of the brain was performed without administration of intravenous contrast material. Individualized dose optimization techniques were used for this CT. COMPARISON: No relevant priors. FINDINGS: There is a moderate size left acute thalamic hemorrhagic infarct at 2.5 x 2.5 cm. The hemorrhage breaks out into the left lateral ventricle. The ventricles are normal size. There are no extra parenchymal fluid collections, hydrocephalus or herniation. Remainder the parenchyma is normal. Subarachnoid CT/STROKE Brain/Head without Cont IMPRESSION: 1. Acute moderate size, 2.5 cm left thalamic hemorrhage. 2. Hemorrhagic breakout into the left lateral ventricle. No hydrocephalus. Neurosurgical consultation advised. Electronically Signed: Andreina Mason MD at 19:56 EST Tel , Service support ,
--- NOTE | 2021-09-08 19:34 | EKG12_ITS ---
Test Reason : NEURO Blood Pressure : / mmHG Vent. Rate : 094 BPM Atrial Rate : 094 BPM P-R Int : 224 ms QRS Dur : 108 ms QT Int : 362 ms P-R-T Axes : 037 -39 029 degrees QTc Int : 452 ms Sinus rhythm with sinus arrhythmia with 1st degree A-V block Left axis deviation Abnormal ECG Confirmed by DUSTIN CUETO, PHYLICIA ([id number]), associate editor AGUILA ARRIAGA ([id number]) on 09/10/2021 10:18:07 AM Referred By: TANESHA Confirmed By:PHYLICIA CHAN MD
--- NOTE | 2021-09-08 19:36 | ED.VIS.STROK ---
HPI History of Present Illness Chief Complaint: Neuro S/Sx Informant: patient, spouse/S.O. and EMS Onset/Context/Timing Onset: Today Context: Sudden Onset Timing: Continuous Quality and Location: Positive for Right Arm Parasthesia, Right Leg Parasthesia, Right Arm Weakness and Right Leg Weakness Current Severity: Severe Maximum Severity: Severe Associated Symptoms Associated Symptoms: Positive for Headache Narrative Narrative: 75-year-old male found down at home in the bathroom. Last known well time was at 5:45 PM. He does have a history of hypertension and A. fib for which he is on the blood thinner Eliquis. Friday and they realize he could not move his right arm or leg. He was brought in by squad. They did notify us prior to arrival he was made a stroke team. I met them in the ambulance bay hallway he was taken directly to CAT scan. Prior similar symptoms: No Recent Illness/Hospitalization: No PFSH PFSH Medical History Asthma Atherosclerotic heart disease of [place] coronary artery without angina pectoris BMI 30.0-30.9,adult Chronic cough Cough Essential (primary) hypertension Generalized anxiety disorder with panic attacks GERD (gastroesophageal reflux disease) Glaucoma History of left heart catheterization (04/08/20) Hyperkalemia Hypothyroidism Neuropathy Non-ischemic cardiomyopathy Paroxysmal atrial fibrillation Persistent atrial fibrillation Recurrent sinusitis Seasonal allergies Home Medications cholecalciferol (vitamin D3) 50 mcg (2,000 unit) capsule 2,000 unit PO DAILY 08/04/19 [History Last Taken Unknown] omeprazole 40 mg capsule,delayed release 40 mg PO DAILY #90 cap 12/01/19 [Rx Last Taken Unknown] fluticasone furoate 50 mcg/actuation blister powder for inhalation 1 inh INHALATION BID ea 01/20/20 [History Last Taken Unknown] apixaban 5 mg tablet 5 mg PO BID #180 tab 12/13/20 [Rx Last Taken Unknown] metoprolol succinate 100 mg tablet,extended release 24 hr 100 mg PO DAILY #90 tab 12/13/20 [Rx Last Taken Unknown] montelukast 10 mg tablet 10 mg PO QPM #90 tab 01/08/21 [Rx Last Taken Unknown] levocetirizine 5 mg tablet 5 mg PO QPM PRN #90 tab 04/23/21 [Rx Last Taken Unknown] levothyroxine 88 mcg tablet 88 mcg PO DAILY #90 tab 07/30/21 [Rx Last Taken Unknown] alprazolam 0.5 mg tablet 0.5 mg PO QHS PRN #30 tab 08/10/21 [Rx Last Taken Unknown] hydrochlorothiazide 12.5 mg tablet 25 mg PO DAILY tab 08/21/21 [History Last Taken Unknown] multivitamin 1 tab PO DAILY 09/08/21 [History Last Taken Unknown] Allergy/AdvReac Type Severity Reaction Status Date / Time lisinopril AdvReac COUGH Verified 09/08/21 19:24 losartan AdvReac cough Verified 09/08/21 19:24 sertraline [From Zoloft] AdvReac dizzy/weakn Verified 09/08/21 19:24 ess/nausea Family History Mother Diabetes Heart disease Father Heart disease Grandfather Diabetes Brother Heart disease Grandmother Cancer Surgical History Cataract H/O bilateral inguinal hernia repair History of bilateral knee replacement History of cardioversion (10/08/19) History of cholecystectomy History of discectomy Partial traumatic amputation of foot Status post cryoablation of arrhythmia (03/24/20) Social History Smoking Status: Current every day smoker tobacco type: smokeless tobacco alcohol intake: current alcohol intake frequency: holidays/special occasions only substance use type: does not use what type of physical activity do you participate in: walking and weight training frequency: 3-4 times per week ROS ROS ED ROS Narrative Denies. Review of Systems ROS Unobtainable: Denies due to encephalopathy Constitutional Constitutional ED: Denies fever(s) Eyes Eyes: Denies change in vision ENT ENT ED: Denies ear pain Cardiovascular Cardiovascular: Denies chest pain Respiratory/Chest Respiratory/Chest: Denies dyspnea Gastrointestinal Gastrointestinal: Denies abdominal pain Genitourinary Genitourinary ED: Denies dysuria Musculoskeletal Musculoskeletal: Denies myalgias Integumentary Denies rash Neurologic Neurologic: Reports headache(s) Psychiatric Psychiatric: Denies depression Hematologic/Lymphatic Hematologic/Lymphatic: Denies easy bruising Allergic/Immunologic Allergic/Immunologic ED: Denies urticaria EXAM Physical Exam Narrative Exam Narrative: 59-year-old male presents on gurney by the paramedics. HEENT exam unremarkable except for right facial droop.. Tongue midline. Neck nontender. Lungs clear to auscultation. Heart regular rhythm. Abdomen soft nontender normal bowel sounds no peritoneal signs. 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 He has normal dorsi plantar flexion in his left leg he can lift the left leg. Right arm has flaccid paralysis and numbness as does the right leg. Neurologically is awake. His eyes are open. He is answering questions and attempting to follow commands. His NIH score is 12. Primarily for motor and numbness of both right upper and right lower extremity. Const Vital Signs: 09/08/21 19:30 09/08/21 19:45 09/08/21 19:49 Temperature 97.7 F L 98.1 F Temperature Source Temporal Temporal Pulse Rate 90 91 92 Respiratory Rate 26 H 26 H 26 H Blood Pressure 196/114 H 206/128 H 242/192 H Blood Pressure Mean 141 154 208 Pulse Ox 96 94 98 Oxygen Delivery Method Room Air Room Air Room Air 09/08/21 19:58 09/08/21 20:04 09/08/21 20:05 Temperature 98 F 98 F Temperature Source Temporal Temporal Pulse Rate 95 95 Respiratory Rate 24 H 20 H Blood Pressure 242/192 H 213/118 H Blood Pressure Mean 208 149 Pulse Ox 96 95 Oxygen Delivery Method Room Air 09/08/21 20:14 09/08/21 20:15 09/08/21 20:30 Temperature 98.1 F 97 F L 97 F L Temperature Source Temporal Temporal Temporal Pulse Rate 94 88 87 Respiratory Rate 22 H 26 H 28 H Blood Pressure 213/118 H 181/114 H 156/129 H Blood Pressure Mean 149 136 138 Pulse Ox 95 95 95 Oxygen Delivery Method Room Air Room Air 09/08/21 20:32 09/08/21 20:45 09/08/21 20:50 Temperature 97 F L 97.9 F 97.9 F Temperature Source Temporal Temporal Temporal Pulse Rate 86 87 87 Respiratory Rate 26 H 26 H 28 H Blood Pressure 164/112 H 183/122 H 183/122 H Blood Pressure Mean 129 142 142 Pulse Ox 93 94 95 Oxygen Delivery Method Room Air 09/08/21 21:00 09/08/21 21:03 09/08/21 21:15 Temperature 97.9 F 97.8 F Temperature Source Temporal Temporal Pulse Rate 86 90 83 Respiratory Rate 26 H 26 H 24 H Blood Pressure 166/89 H 189/99 H 155/95 H Blood Pressure Mean 114 129 115 Pulse Ox 94 93 95 Oxygen Delivery Method Room Air Room Air Positive well nourished, well developed and obese; Negative for cachectic, contractures or unkempt General Appearance ED: well developed; Negative for unkempt, cachectic, contractures or NAD Nutritional Appearance: obese; Negative for cachectic HEENT Reports moist mucous membranes atraumatic Eyes PERRL and EOMs intact bilaterally Neck no lymphadenopathy, supple and no JVD General: Negative for tenderness Chest Wall inspection of chest normal and palpation of chest normal Resp normal respiratory effort and clear to auscultation bilaterally Auscultation: Negative for rales, rhonchi or wheezes Cardio no murmurs Rate: Negative for regular rate Rhythm: Negative for regular rhythm GI normal to inspection, nondistended, normoactive bowel sounds, soft to palpation, non-tender, non-distended and no masses Auscultation: normoactive bowel sounds Palpation: Negative for tender or guarding Back/Spine no CVA tenderness General Back: Negative for CVA tenderness Cervical Spine: Negative for cervical spine tenderness Extremity normal to inspection Extremity Narrative: Except right arm and right leg flaccid paralysis. General Extremety ED: Negative for deformity or tenderness General Extremity: Negative for deformity Neuro oriented x3 Neuro Narrative: Flaccid paralysis right upper and right lower extremity. Sensorium / Orientation: alert, oriented to person, oriented to place and oriented to time; Negative for orientation impaired, confused, lethargic or stuporous Speech: speech normal Motor Exam: strength abnormal; Negative for strength 5/5 throughout Psych mental status grossly normal Appearance: Negative for unkempt Skin no wounds General Skin Exam: Negative for jaundice Lesions: no lesions Rashes: no rashes and No rashes noted STROKE Vital Signs/Narrative: Vital Signs Temp Pulse Resp BP Pulse Ox 09/08/21 21:15 83 24 H 155/95 H 95 09/08/21 21:03 97.8 F 90 26 H 189/99 H 93 09/08/21 21:00 97.9 F 86 26 H 166/89 H 94 09/08/21 20:50 97.9 F 87 28 H 183/122 H 95 09/08/21 20:45 97.9 F 87 26 H 183/122 H 94 09/08/21 20:32 97 F L 86 26 H 164/112 H 93 09/08/21 20:30 97 F L 87 28 H 156/129 H 95 09/08/21 20:15 97 F L 88 26 H 181/114 H 95 NIHSS Initial: 1a Level of Consciousness: 0 1b LOC Questions (Score 2 if aphasic/stupor): 0 1c LOC Commands (Only score 1st attempt): 0 2 Best Gaze (If aphasic, use reflexive mvmts.): 0 3 Visual: 0 4 Facial Palsy: 2 5 Motor Arm Right (UN = amputation/fusion): 4 5 Motor Arm Left: 0 6 Motor Leg Right: 4 6 Motor Leg Left: 0 7 Limb ataxia (Only + if out of proportion): 2 8 Sensory (Aphasia/stupor=0 or 1, coma=2): 0 9 Best Language: 0 10 Dysarthria (mute, coma=2, intubated=UN): 0 11 Extinction and Inattention (only scored if +): 0 Total Score: 12 MDM MDM MDM Narrative Medical decision making narrative: Patient presents with right-sided flaccid paralysis. Has an acute hemorrhagic stroke. Of already discussed with [facility] stroke center with one of the neurosurgeons. The patient will receive Kcentra weightbase dose due to his history of being on the blood thinner Eliquis. And he will be transferred by helicopter to [facility]. Soon as his is available I will speak to her. Patient also be started on a Cardene drip for his hypertension. Lab Data Attestation: I reviewed the patient's lab results. Lab results narrative: CBC shows a white count of 8. Hemoglobin 17. Platelets of 221. PT/INR and PTT are unremarkable. Electrolytes show sodium 127. Potassium 5.3. Anion gap of 8. Normal BUN and creatinine. Glucose of 147. Normal troponin. CAT scan of the brain shows a thalamic hemorrhage consistent with a hemorrhagic stroke. This does extend into the left lateral ventricle. Labs: Laboratory Results - last 24 hr 09/08/21 09/08/21 09/08/21 19:49 19:49 19:49 WBC 8.1 RBC 5.29 Hgb 17.0 H Hct 49.8 MCV 94.1 H MCH 32.1 H MCHC 34.1 RDW Std Deviation 42.2 RDW Coeff of Litzy 12.1 Plt Count 221 MPV 9.4 Immature Gran % (Auto) 0.600 Neut % (Auto) 77.5 H Lymph % (Auto) 9.1 L Jay % (Auto) 11.8 H Eos % (Auto) 0.4 Baso % (Auto) 0.6 Absolute Neuts (auto) 6.3 Absolute Lymphs (auto) 0.73 L Nucleated RBC % 0 PT 14.1 INR 1.2 APTT 28.5 Sodium 127 L Potassium 5.3 H Chloride 92 L Carbon Dioxide 27.0 Anion Gap 8 BUN 14 Creatinine 0.95 Estim Creat Clear Calc 72.61 Est GFR (MDRD) Af Amer 99 Est GFR (MDRD) Non-Af 82 BUN/Creatinine Ratio 14.8 Glucose 147 H Calcium 9.4 Troponin I High Sens 10 Radiography Diagnostic Testing: Clinical Impression(s) from Imaging Studies Brain CT 09/08/21 19:34 IMPRESSION: 1. Acute moderate size, 2.5 cm left thalamic hemorrhage. 2. Hemorrhagic breakout into the left lateral ventricle. No hydrocephalus. Neurosurgical consultation advised. Electronically Signed: Andreina Mason MD at 19:56 EST Tel , Service support , ADDENDUM: 09/08/212008 IMPRESSION: 1. Acute moderate size, 2.5 cm left thalamic hemorrhage. 2. Hemorrhagic breakout into the left lateral ventricle. No hydrocephalus. Neurosurgical consultation advised. N.B. : The above Results were Read Back by Andreina Mason MD to Dr. Claudy MD, and understanding confirmed on 09/08/2021 20:02:47 (ET). Electronically Signed: Andreina Mason MD at 19:56 EST Tel , Service support , Chest X-Ray 09/08/21 20:10 IMPRESSION: 1. Asymmetric elevation right hemidiaphragm with mild overlying airspace disease likely representing atelectasis. 2. Widened cardiomediastinal silhouette likely due to technique. 2. No other evidence of acute cardiopulmonary disease. Electronically Signed: Eliceo Zimmerman DO at 21:38 EST Tel , Service support , Rhythm Strip Rhythm Strip: Sinus Rhythm Rate: 94 Ectopy: None EKG Initial EKG: Attestation: I personally reviewed and interpreted this EKG as follows: Interpretation: Sinus Rhythm and No Acute Injury Pattern Comments: Normal sinus rhythm rate of 94. First-degree AV block with a AR interval of 224. No acute signs of VT or EMEA. Prior EKG tracings: not available for review Stroke Documentation Questions Stroke Team Activated: Yes Reviewed Inclusion/Exclusion criteria: Yes Was Patient considered for Endovascular Intervention?: No IV Alteplase (t-PA) Administered: No No contraindications for IV Alteplase (t-PA) administration.: No (Intracranial bleed) Critical Care Time Critical Care Time: Yes Critical care time (excluding procedures): 30-74 minutes, Including time spent:, Discussing w/Patient &/or Family/Manager Supply Chain Planning, Discussing w/Consultants, Arranging Admission or Transfer, Performing Direct Patient Care at Bedside and - (32 minutes.) Discharge Plan Triage Chief Complaint: Neuro S/Sx ED Provider: Donte Loco Dx/Rx/DC Orders Clinical Impression: Acute intra-cranial hemorrhage, Hemorrhagic stroke, History of atrial fibrillation, Coagulopathy Prescriptions: No Action cholecalciferol (vitamin D3) 2,000 unit capsule 2,000 unit PO DAILY RF: 0 fluticasone furoate 50 mcg/actuation blister with device 1 inh INHALATION BID RF: 0 omeprazole 40 mg capsule,delayed release(DR/EC) 40 mg PO DAILY Qty: 90 RF: 3 hydrochlorothiazide 12.5 mg tablet 25 mg PO DAILY RF: 0 levocetirizine [Xyzal] 5 mg tablet 5 mg PO QPM PRN (Reason: allergy symptoms) Qty: 90 RF: 2 multivitamin Tablet 1 tab PO DAILY RF: 0 metoprolol succinate 100 mg tablet extended release 24 hr 100 mg PO DAILY Qty: 90 RF: 4 Eliquis 5 mg tablet 5 mg PO BID Qty: 180 RF: 3 montelukast 10 mg tablet 10 mg PO QPM Qty: 90 RF: 3 levothyroxine 88 mcg tablet 88 mcg PO DAILY Qty: 90 RF: 1 alprazolam 0.5 mg tablet 0.5 mg PO QHS PRN (Reason: Anxiety) Qty: 30 RF: 1 Primary Care Provider: Lexa Lomeli Referrals: Lexa Lomeli MD [Primary Care Provider] - Disposition Disposition: Acute Care Hospital Discharge Location: [facility] Discharge Date/Time: 09/08/21 21:23
[2021-09-08 19:58] LABS: Absolute Lymphocyte Count 0.73 X10^3/uL (0.83-4.51); Absolute Neutrophil Count 6.3 X10^3/uL (2.0-7.7); Basophil# 0.05 X10^3/uL; Basophil% 0.6 % (0-1); Eosinophil# 0.03 X10^3/uL; Eosinophils% 0.4 % (0-5); Hematocrit 49.8 % (40-54); Lymphocyte # 0.73 X10^3/ul (0.83-4.51); Lymphocyte % 9.1 % (19-41); Mean Corp Hgb Conc 34.1 g/dL (32-36); Mean Corpuscular Hgb 32.1 pg (27.0-32.0); Mean Corpuscular Volume 94.1 fL (80-94); Mean Platelet Vol. 9.4 fl (6.2-12.0); Monocyte# 0.95 X10^3/uL; Monocyte% 11.8 % (0-10); NRBC Flagged by Analyzer 0 % (0-5); Neutrophil # 6.25 X10^3/uL (2.7-7.7); Neutrophil % 77.5 % (47-70); Platelet Count 221 K/mm3 (150-450); RBC Distribution Width CV 12.1 % (11.6-14.6); RBC Distribution Width SD 42.2 fl (35.1-43.9); Red Blood Count 5.29 M/mm3 (4.6-6.2); White Blood Count 8.1 K/mm3 (4.4-11.0)
[2021-09-08] MEDS: Nicardipine HCl-0.9% Sod Chlor 20 MG/200 ML IV.SOLN 50 MG IV (19:58)
[2021-09-08 20:07] LABS: International Normalized Ratio 1.2; Prothrombin Time (Protime)PT. 14.1 SECONDS (11.7-14.9)
[2021-09-08 20:08] LABS: Partial Thromboplast Time 28.5 Seconds (24.1-36.2)
--- NOTE | 2021-09-08 20:10 | RAD_ITS ---
INDICATION: Neuro deficit, acute, stroke suspected EXAMINATION/TECHNIQUE: X-RAY - XR Chest 1 View COMPARISON: Chest x-ray 06/05/2020 FINDINGS: LINES/DEVICES: None. LUNGS: Asymmetric elevation right hemidiaphragm compared to prior exam. Overlying mild airspace disease likely representing atelectasis. No pleural effusion. No pneumothorax. No nodule or mass. MEDIASTINUM AND CARDIOVASCULAR STRUCTURES: Widened cardiomediastinal silhouette is most likely due to portable, AP technique. No evidence of pulmonary vascular congestion. BONES AND SOFT TISSUES: Anterior cervical spine fusion plate. Bridging osteophytes right lateral side mid thoracic spine. No fracture. No malalignment. Degenerative AC joint arthropathy. RAD/Chest 1 View IMPRESSION: 1. Asymmetric elevation right hemidiaphragm with mild overlying airspace disease likely representing atelectasis. 2. Widened cardiomediastinal silhouette likely due to technique. 2. No other evidence of acute cardiopulmonary disease. Electronically Signed: Eliceo Zimmerman DO at 21:38 EST Tel , Service support ,
[2021-09-08 20:17] LABS: Anion Gap 8 (5-15); BUN 14 mg/dL (7-18); BUN/Creat Ratio 14.8 RATIO (10-20); Calcium,Total 9.4 mg/dL (8.5-10.1); Chloride 92 mmol/L (98-107); Creatinine, Serum 0.95 mg/dL (0.70-1.30); EST Glomerular Filtration Rate 82 mL/min (>60); Est Glom Filt Rate - Afr Amer 99 mL/min (>60); Estimated Creatinine Clearance 72.61 ml/min; Glucose 147 mg/dL (74-106); Potassium 5.3 mmol/L (3.5-5.1); Sodium Level 127 mmol/L (136-145); Troponin-I HS 10 pg/mL (3.0-78.0)
[2021-09-08] MEDS: Labetalol (Prefilled) 20 MG/4 ML IV ×2 (20:24→21:02)
--- NOTE | 2021-09-08 20:37 | ED.RN ---
per MD recommendation to start cardene prior to labetolol, when not to goal range- labetolol given, see MAR.
--- NOTE | 2021-09-08 20:44 | ED.RN ---
spoke with MD to assess patient- worsening condition. see NIH scoring and Glascow. MD assessed patient- does not feel pt needs to be intubated at this time. [facility] to arrive at 2044. Transfer center notified. and daughter at bedside.
== END 2021-09-08 21:23 | disposition short-term general hospital (02) ==
PROVIDERS: Emergency Provider Emergency Medicine; PCP Internal Medicine
DX: I62.9 Nontraumatic intracranial hemorrhage, unspecified (principal); R29.810 Facial weakness; G81.91 Hemiplegia, unspecified affecting right dominant side; R29.712 NIHSS score 12; J45.909 Unspecified asthma, uncomplicated; I25.10 Atherosclerotic heart disease of native coronary artery without angina pectoris; I10 Essential (primary) hypertension; K21.9 Gastro-esophageal reflux disease without esophagitis; E78.5 Hyperlipidemia, unspecified; E03.9 Hypothyroidism, unspecified; F17.200 Nicotine dependence, unspecified, uncomplicated; I48.0 Paroxysmal atrial fibrillation; Z79.899 Other long term (current) drug therapy; Z79.01 Long term (current) use of anticoagulants
CPT/HCPCS: 70450; 71045; 80048; 84484; 85025; 85610; 85730; 93005; 96365; 96366; 96368; 99285; J7050; J7168; A4216